=== PATIENT | female | born 1985 | race Caucasian/White ===

== ENCOUNTER 2023-10-08 08:04 | Emergency (ER) | payer BC, SELFPAY ==
[2023-10-08 08:11] VITALS: BP 121/68; PULSE 77; RESP 20; TEMP 36.8; O2SAT 99
--- NOTE | 2023-10-08 08:30 | DI.MRI_ITS ---
Exam(s) MR LUMBAR SPINE WO EXAM: MR LUMBAR SPINE WO CLINICAL HISTORY: severe back pain, history lumbar surgery. TECHNIQUE: Multiplanar multisequence MRI of the Lumbar spine was performed. COMPARISON: There are no plain films available at the time of this MRI interpretation. FINDINGS: Five lumbar vertebrae are presumed. Conus medullaris is at normal level. There is no evidence of conus mass nor subjacent clumping of in trathecal nerve roots to suggest arachnoiditis. The distal thecal sac appears unremarkable.There is no evidence of Tarlov intrasacral cysts nor other significant findings within the sacral canal Bones:There are no fractures nor ominous osseous lesions in the lumbar vertebral bodies and visualize d sacrum. A small benign intraosseous hemangioma is noted in the left side of the L5 vertebral body. With respect to the individual levels... T12-L1: Unremarkable L1-2: Normal disc height and signal. No disc herniation nor central canal stenosis.No foraminal steno sis L2-3: Normal disc height. No disc herniation nor central canal stenosis.No foraminal stenosis.No face t arthropathy. L3-4: Normal disc height. No disc herniation or central canal stenosis. No foraminal stenosis. Mil d degenerative change in the facet joints. L4-5: This level exhibits mild disc space narrowing on the right side of the disc space. There is very mild anterolisthesis of L4 upon L5 related to facet arthropathy. There is central annul ar bulging with a small superimposed central subligamentous disc protrusion which extends posteriorly 4 mm and is approximately 6 mm wide. This slightly indents the anterior thecal sac at this level. T here is no prominent canal stenosis. No significant foraminal stenosis. There is degenerative signal evident in both facet joints. There are no degenerative synovial cysts evident. L5-S1: This level exhibits a right partial laminectomy defect. There is also mild anterolisthesis L5 upon S1 evident at this level. There is a proximally 6 mm anterior slippage of L5 upon S1. There i s increased signal in the posterior disc space at this level. Slightly asymmetric right-sided annula r bulging noted. There is mild anterolisthesis L5 upon S1 with mild-moderate central spinal canal st enosis. Mild bilateral foraminal stenosis also noted. Facet joints at this level appears somewhat h ypoplastic. Soft tissues: paraspinal soft tissues appear unremarkable. IMPRESSION: 1. Evidence of previous surgery at L5-S1 level with right-sided partial laminectomy defect.. Mild an terior listhesis L5 upon S1 with mild-moderate central canal stenosis. This level also exhibits asym metric right-sided annular bulging. There is an element of foraminal stenosis right more so than lef t but not severe. 2. Small central disc protrusion at L4-5 level which slightly indents the anterior thecal sac. There is no prominent central canal stenosis and no significant foraminal stenosis at this level. There i s also mild anterolisthesis of L4 upon L5 due to facet arthropathy. 3. Please note that there are no prior lumbar spine imaging studies available at the time of this MRI interpretation. Discussed with ER provider. DATA REPOSITORY:
[2023-10-08] MEDS: Cyclobenzaprine 10 MG TAB PO (08:43)
[2023-10-08] MEDS: Lidocaine 5% Patch 1 PATCH TP (08:43)
[2023-10-08] MEDS: oxyCODONE 5 MG TAB PO (08:43)
[2023-10-08] MEDS: Acetaminophen 500 MG TAB 1000 MG PO (08:43)
[2023-10-08] MEDS: predniSONE 20 MG TAB 40 MG PO (08:44)
--- NOTE | 2023-10-08 09:21 | ED.GENADUL_ITS ---
Discharge Plan Disposition Patient Disposition: Home Condition: Stable Discharge Details Clinical Impression: Lumbar back sprain Primary Care Provider: Unknown,Unknown ED Provider: Aurelio Oropeza Home Meds and New Rx's Prescriptions: New cyclobenzaprine 10 mg tablet 10 mg PO TID PRNQty: 30 0RF prednisone 20 mg tablet 40 mg PO DAILY 5 Days Qty: 10 0RF Continued mv-mn-iron tcy-BH-gndol9,6,9#3 18-600 mg-mcg capsule PO vitamin B complex [B Complex-Vitamin B12] Tablet 1 tab PO DAILY omega 5-nxx-inu-fish oil [Fish Oil] 1,000 mg (120 mg-180 mg) capsule 1 cap PO DAILY Discharge Instructions Instructions: Prednisone (By mouth), Cyclobenzaprine (By mouth), Lumbar Disc Herniation (ED), Lower Back Exercises (ED) Additional Instructions: You were seen in the emergency department for acute lumbar back pain. You have history of lumbar back surgery. You have some bulging disks diffusely in the lumbar spine but no emergent spinal pathology seen on MRI. Please continue taking Tylenol and ibuprofen at therapeutic dosing levels as you have been. I did send a prescription for cyclobenzaprine a muscle relaxer to [facility] in [place]. Please apply an hkpl-kpe-fhxwyrw Lidoderm patch to your lower back each day for 12 hours, alternate heat and ice to the area. I have also sent a taper of steroids which helps with inflammation especially in the central nervous system. Please follow-up with your spine doctor at [facility], you may try massage therapy, physical therapy or the chiropractor as well. Please return to the ER for any paralysis of the lower extremities, any urinary retention or bowel incontinence, numbness in the groin. Discharge Data Discharge Date/Time-TO BE ENTERED AT DEPARTURE: 10/08/23 10:47 HPI General Date/Time Provider Initiated Documentation: 10/08/23 08:36 . 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 Quality described as severe low diffuse back pain with some shooting pains down both legs, worse on R- can barely walk or ambulate, any movement of lower extremities causing severe back pain, no radiation to urinary retention, bowel incontinence, groin numbness, IVDU history, complete numbness of legs, paralysis. Severity is described as 10/10. Palliating factors include Tylenol and ibuprofen and gentle heat without relief. Provoking factors include nothing specific. Events leading up to the incident/Associated Symptoms: Patient has history of lumbar surgery at [facility] in remote past. Patient not anticoagulated. Related Data Home Medications Medication Instructions Recorded Confirmed cyclobenzaprine 10 mg tablet 10 mg PO TID PRN #30 tabs 10/08/23 mv-mn-iron fum-folic acid-omega 3, cap PO 10/08/23 6, 9 no.3 18 mg-600 mcg capsule omega 0-nhv-gko-fish oil 1,000 mg 1 cap PO DAILY 10/08/23 10/08/23 (120 mg-180 mg) capsule (Fish Oil) prednisone 20 mg tablet 40 mg (2 x 20 mg) PO DAILY 5 days 10/08/23 #10 tabs vitamin B complex (B 1 tab PO DAILY 10/08/23 10/08/23 Complex-Vitamin B12 tablet) Previous Rx's Medication Instructions Recorded cyclobenzaprine 10 mg tablet 10 mg PO TID PRN #30 tabs 10/08/23 prednisone 20 mg tablet 40 mg (2 x 20 mg) PO DAILY 5 days 10/08/23 #10 tabs Allergies Allergy/AdvReac Type Severity Reaction Status Date / Time No Known Allergies Allergy Unverified 10/08/23 08:16 General Stated Complaint: Nk/Back Pain DEANDRE: 3 Review of Systems All systems reviewed & are unremarkable except as noted in HPI and below Exam Narrative Exam Narrative: GENERAL APPEARANCE: Well-nourished, non-toxic, awake and alert, atraumatic, no acute distress. SKIN: Warm, pink, dry, intact, without rashes/lesions/ulcerations. HEAD: Normocephalic, atraumatic, normal hair distribution for gender/age. EYES: Pupils PERRLA, EOMs intact without nystagmus, normal conjunctiva, no exudates on lids/lashes. ENT: Nares patent, no circumoral cyanosis, no facial swelling NECK: Supple, trachea midline, painless cervical ROM. LUNGS/CHEST: Non-labored respirations, normal A/P diameter, symmetrical expansion, no chest wall deformity HEART (CV/PV): No peripheral edema, no JVD. ABDOMEN: Soft, non-distended, no guarding. MSK: Normal ROM, no swelling/deformity to bilateral UEs or LEs, moving all extremities without weakness, no cyanosis, spine midline without tenderness, normal curvature, diffuse tenderness to lumbar back without vertebral crepitus/step-offs, sensation intact bilateral LEs, ROM limited to pain, severe lumbar pain with passive SLR, no saddle anesthesia, pelvis stable NEURO: Mental Status AAOx4 - alert to person, place, time, events No facial droop, no forehead involvement. Motor: No focal weakness - strength 5/5 in bilateral UEs and LEs, proximal and distal, symmetric. Sensory: sensation intact to light touch globally. Gait antalgic. PSYCH: euthymic, cooperative, pleasant, appropriate speech Course Vital Signs Vital signs: Vital Signs Temperature 36.8 C 10/08/23 08:11 Pulse 77 10/08/23 08:11 Respiratory Rate 20 10/08/23 08:11 Blood Pressure 121/68 10/08/23 08:11 Pulse Oximetry 99 10/08/23 08:11 Temperature 36.8 C 10/08/23 08:11 Pulse 77 10/08/23 08:11 Respiratory Rate 20 10/08/23 08:11 Respiratory Effort Normal 10/08/23 08:19 Blood Pressure 121/68 10/08/23 08:11 Pulse Oximetry 99 10/08/23 08:11 Medical Decision Making This dictation utilizes [id number]-rl-deji dictation software and may contain unedited grammatical errors. 37 y/o F presents to ED today with a chief complaint of severe lumbar back pain, pain with any movement of LEs, history of lumbar surgery at [facility] in remote history- was lifting a heavy object at the time- happened two days ago with no urinary retention/bowel incontinence since then. No IVDU as risk-factor. Patient has been trying Tylenol/Motrin without relief. Patients' medical history: lumbar laminectomy. Family and social history: works on a farm, heavy lifting. Pertinent exam findings / vital signs include pain with any passive movement of LEs, sensation intact, no swelling/deformity, diffuse lumbar tenderness without crepitus. Differential / pathologies of concern include lumbar herniation, cord syndrome, sciatica, unlikely cauda equina or SEA. Diagnostic studies of: -MRI Lumbar Spine wo Contrast. -shows multilevel disc bulging, likely cause of symptoms, no emergent/critical stenosis/compression of lumbar spine Interventions of: -Tylenol, cyclobenz, 1 dose oxycodone, lidoderm patch, prednisone. 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 Findings not consistent with cauda equina, paralysis, critical spinal compression/cord syndrome, spinal epidural abscess. Disposition of Lumbar Back Sprain. Patient verbalized understanding of the plan and return to ED criteria and engaged in shared decision making. Medical Records Medical records reviewed: Yes I reviewed the patient's medical records. Imaging Data Radiologic Study: Attestation: I personally reviewed and interpreted this imaging study as follows: Imaging: MRI Radiologist's impression: EXAM: MR LUMBAR SPINE WO CLINICAL HISTORY: severe back pain, history lumbar surgery. TECHNIQUE: Multiplanar multisequence MRI of the Lumbar spine was performed. COMPARISON: There are no plain films available at the time of this MRI interpretation. FINDINGS: Five lumbar vertebrae are presumed. Conus medullaris is at normal level. There is no evidence of conus mass nor subjacent clumping of intrathecal nerve roots to suggest arachnoiditis. The distal thecal sac appears unremarkable.There is no evidence of Tarlov intrasacral cysts nor other significant findings within the sacral canal Bones:There are no fractures nor ominous osseous lesions in the lumbar vertebral bodies and visualized sacrum. A small benign intraosseous hemangioma is noted in the left side of the L5 vertebral body. With respect to the individual levels... T12-L1: Unremarkable L1-2: Normal disc height and signal. No disc herniation nor central canal stenosis.No foraminal stenosis L2-3: Normal disc height. No disc herniation nor central canal stenosis.No foraminal stenosis.No facet arthropathy. L3-4: Normal disc height. No disc herniation or central canal stenosis. No foraminal stenosis. Mild degenerative change in the facet joints. L4-5: This level exhibits mild disc space narrowing on the right side of the disc space. There is very mild anterolisthesis of L4 upon L5 related to facet arthropathy. There is central annular bulging with a small superimposed central subligamentous disc protrusion which extends posteriorly 4 mm and is approximately 6 mm wide. This slightly indents the anterior thecal sac at this level. There is no prominent canal stenosis. No significant foraminal stenosis. There is degenerative signal evident in both facet joints. There are no degenerative synovial cysts evident. L5-S1: This level exhibits a right partial laminectomy defect. There is also mild anterolisthesis L5 upon S1 evident at this level. There is a proximally 6 mm anterior slippage of L5 upon S1. There is increased signal in the posterior disc space at this level. Slightly asymmetric right-sided annular bulging noted. There is mild anterolisthesis L5 upon S1 with mild-moderate central spinal canal stenosis. Mild bilateral foraminal stenosis also noted. Facet joints at this level appears somewhat hypoplastic. Soft tissues: paraspinal soft tissues appear unremarkable. IMPRESSION: 1. Evidence of previous surgery at L5-S1 level with right-sided partial laminectomy defect.. Mild anterior listhesis L5 upon S1 with mild-moderate central canal stenosis. This level also exhibits asymmetric right-sided annular bulging. There is an element of foraminal stenosis right more so than left but not severe. 2. Small central disc protrusion at L4-5 level which slightly indents the anterior thecal sac. There is no prominent central canal stenosis and no significant foraminal stenosis at this level. There is also mild anterolisthesis of L4 upon L5 due to facet arthropathy. 3. Please note that there are no prior lumbar spine imaging studies available at the time of this MRI interpretation. Discussed with ER provider. Quality:SDOH Health Related Social Needs: No Data to Display PFSH All Active Problems (Updated 10/08/23 @ 10:31 by RUDOLPH Aguirre) Lumbar back sprain (Acute) Social History Smoking/Tobacco Use Status: Never Smoking risk assessment performed?: Yes Alcohol Intake: current Alcohol Intake frequency: a few times a month Alcohol type: beer, wine and hard liquor Substance use type: does not use Housing: house Do you feel safe at home: Yes Do you feel safe in your relationship?: Yes PAWSS Have you Been Recently Intoxicated or Drunk Within the Last 30 days?: No Have you Ever Experienced Previous Episodes of Alcohol Withdrawal?: No Have you ever Experienced Withdrawal Seizures?: No Have you ever Experienced Delirium Tremens(DT)s?: No Have you ever undergone Alcohol Rehabilitation Treatment (i.e, inpt ot outpatient treatment programs)?: No Have you ever Experienced Blackouts?: No Have you ever Combined Alcohol with other Downers within the last 90 days?: No Have you ever Combined Alcohol with any other Substance of Abuse during the last 90 days?: No Positive Blood Alcohol level on Presentation? [PCS.BAL]: No Evidence of Increased Autonomic Activity (i.e. HR>120, tremor, sweating, agitation, nausea)?: No Result: 0
== END 2023-10-08 10:47 | disposition home or self-care (01) ==
PROVIDERS: Emergency Provider Physician Assistant
DX: S33.5XXA Sprain of ligaments of lumbar spine, initial encounter (principal); X50.0XXA Overexertion from strenuous movement or load, initial encounter; Y93.89 Activity, other specified; Y92.89 Other specified places as the place of occurrence of the external cause
CPT/HCPCS: 99284; 72148; J7512

== ENCOUNTER 2023-10-16 08:54 | Outpatient (CLI) | payer BC, SELFPAY ==
[2023-10-16 08:30] LABS: Abs Immature Grans 0.06 10^3/uL (0.0-0.06); Absolute Basophil Count 0.05 10^3/uL (0.0-0.2); Absolute Eosinophil Count 0.08 10^3/uL (0.0-0.7); Absolute Monocyte Count 0.89 10^3/uL (0.1-0.8); Absolute Neutrophil Count 5.65 10^3/uL (1.2-6.7); Basophils % 0.6; Eosinophils % 0.9; HCT 38.9 % (36.0-46.0); Immature Grans % 0.7; Lymphocytes % 20.2; MCH 29.8 pg (27.0-33.0); MCHC 33.4 % (32.0-36.0); MCV 89 fL (80-95); MPV 9.1 fL (8.0-11.0); Monocytes % 10.6; Platelet Count 259 10^3/uL (130-400); RBC 4.36 10^6/uL (3.93-5.22); RDW 11.7 % (11.7-14.6); RDW-SD 37.8 fL; WBC 8.43 10^3/uL (4.4-10.8)
[2023-10-16 08:49] LABS: Hemoglobin A1C 5.9 % (<5.7)
[2023-10-16 09:07] LABS: ALT 22 U/L (14-59); AST 10 U/L (15-37); Albumin 4.3 g/dL (3.4-5.0); Alkaline Phosphatase 41 U/L (46-116); BUN 16 mg/dL (7-18); Bilirubin, Total 0.4 mg/dL (0.2-1.0); CREATININE 0.8 mg/dL (0.55-1.02); Calcium 8.9 mg/dL (8.5-10.1); Calculated LDL 97 mg/dL (<100); Chloride 101 mmol/L (98-107); Cholesterol 199 mg/dL (<200); Estimated GFR 97.26 (mL/min/1.73m2); Glucose 109 mg/dL (74-106); HDL Cholesterol 67 mg/dL (40-60); Magnesium 1.9 mg/dL (1.8-2.4); Potassium 4.1 mmol/L (3.5-5.1); Sodium 137 mmol/L (136-145); TSH (W/Ref FT4) 0.94 uIU/mL (0.36-3.74); Total Protein 7.7 g/dL (6.4-8.2); Triglyceride 177 mg/dL (<150)
[2023-10-16 13:59] LABS: Vitamin D 25 Total 35.3 ng/mL (30-100)
== END 2023-10-16 08:55 | disposition home or self-care (01) ==
LOC: LBO 08:54
PROVIDERS: Visit Provider Nurse Practitioner Adult Health
DX: R00.2 Palpitations (principal); R53.83 Other fatigue; R73.03 Prediabetes
CPT/HCPCS: 36415; 80053; 80061; 82306; 83036; 83735; 84443; 85025

== ENCOUNTER 2024-03-31 12:07 | Outpatient (CLI) | payer BC, SELFPAY ==
[2024-03-31 12:09] LABS: Abs Immature Grans 0.03 10^3/uL (0.0-0.06); Absolute Basophil Count 0.06 10^3/uL (0.0-0.2); Absolute Eosinophil Count 0.06 10^3/uL (0.0-0.7); Absolute Lymphocyte Count 1.94 10^3/uL (1.2-3.4); Absolute Monocyte Count 0.77 10^3/uL (0.1-0.8); Absolute Neutrophil Count 3.88 10^3/uL (1.2-6.7); Basophils % 0.9 %; Eosinophils % 0.9 %; HCT 37.6 % (36.0-46.0); HGB 12.6 g/dL (11.2-15.7); Immature Grans % 0.4 %; Lymphocytes % 28.8 %; MCH 29.9 pg (27.0-33.0); MCHC 33.5 % (32.0-36.0); MCV 89 fL (80-95); MPV 10.1 fL (8.0-11.0); Monocytes % 11.4 %; Neutrophils % 57.6 %; Platelet Count 268 10^3/uL (130-400); RBC 4.21 10^6/uL (3.93-5.22); RDW 11.9 % (11.7-14.6); RDW-SD 38.8 fL; WBC 6.74 10^3/uL (4.4-10.8)
[2024-03-31 13:06] LABS: Ferritin 90 ng/mL (8-252)
== END 2024-03-31 12:08 | disposition home or self-care (01) ==
LOC: LBO 12:07
PROVIDERS: Visit Provider Surgery
DX: K62.5 Hemorrhage of anus and rectum (principal); K60.1 Chronic anal fissure
CPT/HCPCS: 36415; 82728; 85025

== ENCOUNTER 2024-12-26 10:53 | Outpatient (CLI) | payer BC, SELFPAY ==
--- NOTE | 2024-12-26 15:02 | DI.RAD_ITS ---
Exam(s) XR CERVICAL SPINE COMP 4-5V EXAM: XR CERVICAL SPINE COMP 4-5V CLINICAL HISTORY: RIGHT CERVICAL RADICULOPATHY, M54.12. TECHNIQUE: 2D digital imaging was performed. Five images were obtained. AP, odontoid, lateral and bi lateral oblique images were obtained. COMPARISON: No exams were available for comparison FINDINGS: The odontoid is intact. The lateral masses are well aligned. There is normal alignment of the cervi wilma spine. There is mild narrowing at the T5-C6 disc space. Small endplate osteophytes are also seen at C5-C6 and C6-C7. No acute fracture or subluxation is present. No significant neural foraminal gilbert nosis is present. The cervical thoracic junction is well maintained. The prevertebral soft tissues are unremarkable. Lung apices are clear. IMPRESSION: Mild degenerative changes are seen in the cervical spine. DATA REPOSITORY: RADIATION DOSE DELIVERED:
== END 2024-12-26 11:13 ==
LOC: DI 10:53
PROVIDERS: PCP Nurse Practitioner Adult Health; Visit Provider Nurse Practitioner
DX: M54.12 Radiculopathy, cervical region (principal)
CPT/HCPCS: 72050

== ENCOUNTER 2025-02-06 00:31 | Outpatient (CLI) | payer BC, SELFPAY ==
--- NOTE | 2025-02-06 | DI.MRI_ITS ---
Exam(s) MR CERVICAL SPINE WO EXAM: MR CERVICAL SPINE WO CLINICAL HISTORY: rt cervical radiculopathy M54.12 TECHNIQUE: Multiplanar multisequence MRI of the cervical spine was performed without intravenous contrast. COMPARISON: CR XR CERVICAL SPINE COMP 4-5V from 12/26/2024 FINDINGS: BONES: Vertebral body heights are maintained. Intervertebral disc spaces are normal. Alignment is normal. There are degenerative endplate signal changes at C5-6 and C6-C7. CERVICAL CORD: Craniovertebral junction is unremarkable. The cervical cord is normal size and signal intensity. SOFT TISSUES: Unremarkable. C2-3: No disc herniation or bulge is identified. No significant central spinal canal or neural foraminal stenosis. C3-4: No disc herniation or bulge is identified. No significant central spinal canal or neural foraminal stenosis C4-5: No disc herniation or bulge is identified. No significant central spinal canal or neural foraminal stenosis C5-6: There is prominence of the osteophyte disc complex eccentric to the left. There is prominence of the left uncovertebral joint causing moderate left neural foraminal stenosis. No significant central spinal canal or right neural foraminal stenosis is present. C6-7: There is a moderate size disc herniation eccentric to the right with extension into the right neural foramen. There is no significant central spinal canal stenosis. There are degenerative changes of the left uncovertebral joint causing [id number] left neural foraminal stenosis. Degenerative changes of the right of vertebral joint and the disc material causes moderately severe right neural foraminal stenosis. C7-T1: No disc herniation or bulge is identified. No significant central spinal canal or neural foraminal stenosis IMPRESSION: 1. There is a moderate size disc herniation at C6-C7 which extends into the right neural foramen. This, in conjunction with the degenerative changes causes moderately severe right neural foraminal stenosis. 2. There are degenerative changes of the uncovertebral joints on the left at C5- 6 and C6-7 causing left neural foraminal stenosis at these levels. DATA REPOSITORY:
== END 2025-02-06 00:51 ==
LOC: DI 00:31
PROVIDERS: PCP Nurse Practitioner Adult Health; Visit Provider Nurse Practitioner
DX: M50.023 Cervical disc disorder at C6-C7 level with myelopathy (principal)
CPT/HCPCS: 72141